=== PATIENT | female | born 1980 | race Caucasian/White ===

== ENCOUNTER 2025-03-11 09:56 | Outpatient (AMB) | payer OTHER, SELFPAY ==
--- NOTE | 2025-03-11 09:58 | A.OFFPC_ITS ---
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 ATTENDANT/CPE Intake Note: New patient to establish care and cpe Brazing Machine Setter Required: No Allergies Iodinated Contrast Media (Contrast Dye) Allergy (Mild, Verified 03/11/25 10:33) hives/sneezing Medication List - Last Reviewed 03/11/25 by Radha Lundberg MA sertraline 75 mg PO QAM Tobacco use date assessed: 03/11/25 Dental Screening Dental Screen Date: 03/11/25 Did you have a dental visit in the last 12 months?: Yes Did you have a dental problem in the last 6 months where you did not have access to dental care?: No Was dental information given to patient?: Patient has dentist HPI HPI Comments History of Present Illness Details Marielle 44 y/o F with obesity, JATINDER, MDD, hx of h pv, migraines Surgery: Hx of L shoulder labral repair in 1999, lipoma of back Fhx: Parents alive and well; Sister w/ luis miguel; sister 2 with depression; Cancer hx in grandparents; 2 children dtr age 11 and son age 8 healthy. Social: , lives w/ kids, stay at home Mom Health Maintenance Tdap 2016 Flu 03/11/25 Mammo 01/2025 [place] * Pap Spring 2024 Specialists DESIGN QUALITY ENGINEER BOGG Psych and counselor History of Present Illness The patient is a 44-year-old female presenting to establish care, for a CPE, and for evaluation of left shoulder pain. No records - unable to get record, pcp private and retired. Left shoulder pain: - The patient presents with left shoulde r pain that has been ongoing for a couple of months, with a potential injury occurring at the end of November while tossing her nephew in a pool. - The pain is described as an intense, d ull pain that has progressively worsened since January. - Symptoms are most severe in the mornin g but improve after a shower. - She reports difficulty with certain mo tions such as taking off a shirt, placing her hands on her hips, and crossing her arm. - She has pain with lateral reach, such as when trying to shave her underarm. - She has been taking Advil for the pain , which provides some relief. - She has a surgical history of a left l abrum tear repair in the early , which had not been problematic since the surgery. Mental health history: - The patient has a history of generaliz ed anxiety disorder and depressive disorder. - She is managed by a prescriber and sta rted taking sertraline 75 mg in June. Gynecologic history: - She sees Dr. Herson Daily for her gynecological care. - Her last Pap smear was in June or Jul of the current year. - She has a distant history of HPV manif esting as warts, which were treated, and one recurrence after the of her son. - Her Pap smears have not shown any issu es. Past Medical History - Obesity with a BMI of 30.4 - Generalized anxiety disorder, treated with sertraline 75 mg - Depressive disorder, treated with sert raline 75 mg since June. - History of HPV with warts, treated. - History of migraines, which were more prominent during puberty. - Allergy to contrast dye, which caused a mild rash and sneezing, treated with Benadryl. Past Surgical History - Left [place] labrum [place]. - Revision surgery on the left shoulder due to a complication with a dissolving screw. - Lipoma removal at the surgery center [facility]. Family History - Parents are both healthy. - One sister has a thyroid issue, possib ly Luis Miguel's. - One sister has a mental health conditi on. - Maternal grandfather had prostate canc er. - Maternal grandmother had an unknown ty pe of cancer. Social History - The patient is . - She has two children, a son and a daug hter, who are healthy. Review of Systems - Musculoskeletal: Reports left shoulder pain with decreased range of motion ongoing for months, worsened since January. Reports associated neck pain from overcompensation. Denies pain with straight leg raise. - Neurological: Reports a history of adry mary when she was younger. Denies current headaches. Denies weakness or faintness with blood draws. - Constitutional: Denies any active issu es other than her shoulder. - Allergies: Reports a history of a mild reaction to contrast dye, characterized by rash and sneezing. Physical Exam General: Well developed, well nourished, in no acute distress. Appears stated age. Head: Normocephalic, atraumatic. Eyes: Pupils are equal, round and reactive to light and accommodation. Conjunctivae are clear. Scleras nonicteric bilat. Vision grossly normal. Ears: TMs clear AU, EACS WNL Nose: Patent, without discharge. Neck: No carotid bruit bilat. Supple, no adenopathy or thyromegaly. Breast: Edu on SBE Lungs: Clear to auscultation bilaterally. No rales, rhonchi or wheeze noted. Good air flow in all jsoeph. Heart: Regular rate and rhythm. No murmurs, click, rubs or gallops are noted. Abdomen: Bowel sounds present in all quadrants. The abdomen is soft, nontender, with no masses or organomegaly noted. No hernias are noted. : Deferred. Reviewed recommendations for routine DESIGN QUALITY ENGINEER Pulses: Peripheral pulses are equal and palpable bilaterally. Extremities: No clubbing, cyanosis nor edema is noted. Neurologic: Gait and station normal. Cranial Nerves 2-12 intact. Motor strength grossly symmetrical and intact. No sensory loss. Balance normal. Skin: No rashes, ulcers, or lesions noted. Turgor is good. Skin color is good. Hair and nails are without abnormalities. Psych: Normal eye contact, affect and mood appropriate, and normal interactions. Patient is alert and appropriate to context. Results - Mammogram: Performed in January, ts pending. - Labs pending Medical Decision Making The patient is a 44-year-old female here to establish care and for evaluation of left shoulder pain. Her primary complaint today is left shoulder pain that has been present for several months and has worsened recently, with significant limitations in her range of motion. Given the history of a possible inciting event, the chronicity of symptoms, and the physical exam findings of pain with specific movements and limited range of motion, a rotator cuff injury is suspec mario. Two options for orthopedic evaluation were discussed: a referral to our hospital's orthopedic department, which may take several weeks, or a visit to a local orthopedic urgent care for a quicker evaluation. The patient opted to go to the orthopedic urgent care for a more immediate assessment due to the duration and severity of her symptoms. As this is an establishment of care visit, we also addressed health maintenance. The patient is up-to-date on her Tdap vaccine. She agreed to and will receive an influenza vaccine today. Baseline labs, including screening for thyroid disease and diabetes, were ordered and will be drawn today. Her past medical history of obesity, anxiety, depression, migraines, and HPV was reviewed. Her medication list, consisting only of sertraline, and her allergy to contrast dye were also noted. Plan Health Maintenance - The patient is establishing care. - Plan is to obtain baseline labs today, including screening for thyroid disease and diabetes. - She will receive her annual influenza vaccine today. - A follow-up physical is scheduled in o year, with instructions to follow up sooner if any lab results are abnormal or if other issues arise. - The patient was educated on how to use the [employer] patient portal for communication and to view lab results. 1. Left Shoulder Pain - The patient's symptoms are suspicious for a rotator cuff injury. - The patient was advised to seek evalua tion at an orthopedic urgent care for a quicker assessment, including on-site X-rays and potential for injection or surgical referral if needed. - She was instructed to follow up with wilber parnell via the patient portal after her orthopedic visit. - Should she require a surgical referral and prefer to stay within our network, she can request a referral from me at that time. 2. Allergy To Contrast Dye - The patient's allergy to contrast dye has been documented. - She was advised to remind any provider ordering imaging about this allergy, as there are different types of contrast. Patient Instructions - Please go to the orthopedic urgent car e across the street to have your left shoulder evaluated. They can do X-rays there and decide on the next steps. - You will receive a flu shot in your ri ght arm today before you leave. - After the shot, please stop at the fro nt desk to get a printout and let them know you need to have labs drawn. They will take you from there. - You will receive an email to sign up f or our patient portal, called the [employer] jayshree. Please sign up within 24 hours. This is the best way to contact me and to see your lab results. - Please send me a message through the [employer] after your visit with the technical information specialist to let me know what they found. - Please schedule a physical exam with wilber parnell for one year from now. If anything comes back on your blood work, or if you get sick or have any other problems, send me a message and we will get you in sooner. - If you ever need imaging that requires contrast dye, please remember to tell the doctor about your allergy. Consent The patient provided verbal consent for baseline lab work and an influenza vaccination after a discussion of the rationale for these interventions. Patient was informed and verbally consented to the use of an ambient scribe for clinic note documentation during this visit. An additional 30 minutes was spent addressing the problem(s) noted at todays visit. This includes time spent before the visit reviewing the chart, time spent during the visit, and time spent after the visit on documentation reviewing laboratory results, diagnostic imaging, medications, performing a medically necessary evaluation, counseling on diagnoses, care coordination, ordering appropriate tests, ordering appropriate medications, review of tests performed by other providers, reporting test results with the patient, communication with other healthcare providers. [facility] Medical History (Updated 03/11/25 @ 10:51 by BARRIE Breaux) Anxiety and depression HPV in female Hx of mammogram (~01/2025) Migraines Surgical History (Updated 03/11/25 @ 10:27 by BARRIE Breaux) H/O left shoulder surgery (~1999) Family History (Updated 03/11/25 @ 10:11 by Radha Lundberg MA) Maternal Grandmother Diabetes Cancer Maternal Grandfather Prostate cancer Sister Thyroid disorder Social History (Updated 03/11/25 @ 10:11 by Radha Lundberg MA) Household Members: Spouse and Children Both parents involved: No Caregiver staying overnight: No Housing: House Are you a primary senior care specialist to a significant other at home: Yes Do you presently have visiting nurse or other home services: No 75 years or older and lives alone: No Alcohol intake: current Alcohol intake frequency: a few times a month Patient Tobacco Use Status: Never used Tobacco e-Cigarette/Vaping Use: Never Used Second Hand Smoke Exposure: No service: No Current occupational status: unemployed Current occupational exposures/hazards: No Cognitive needs: No Hearing needs: No Vision needs: Yes (wear contacts and glsses) Questionnaire PHQ-9 Over the last 2 weeks, how often have you been bothered by any of the following problems? 1. Little interest or pleasure in doing things: not at all 2. Feeling down, depressed, or hopeless: several days 3. Trouble falling or staying asleep, or sleeping too much: not at all 4. Feeling tired or having little energy: several days 5. Poor appetite or overeating: several days 6. Feeling bad about yourself - or that you are a failure or have let yourself or your family down: not at all 7. Trouble concentrating on things, such as reading the newspaper or watching television: not at all 8. Moving or speaking so slowly that other people could have noticed. Or the opposite - being so fidgety or restless that you have been moving around a lot more than usual: not at all 9. Thoughts that you would be better off or of hurting yourself in some way: not at all Total score: 3 Depression Screening Interpretation: Negative Depression Screening Done: Yes 15020 - PHQ-9 Billing: Yes Source: Developed by Drs. Eduin Osborn, Radha Ureña, Yariel Mejía and colleagues, with an educational jasmine from [employer]. Thrive Questionnaire Date Thrive assessed: 03/11/25 I am a: Patient What is your living situation today?: I have a steady place to live Within the past 12 months, did the food you bought not last and you didn't have the money to get more?: Never true Within the past 12 months, did you worry whether your food would run out before you got money to buy more?: Never true Do you have trouble paying for medicines?: No Do you have trouble getting transportation to medical appointments?: No Do you have trouble paying your heating and electricity bill?: No Do you have trouble taking care of your child, family member or friend?: No Do you have trouble with day-to-day activities such as bathing, preparing meals, shopping, managing finances, etc.?: No Are you currently unemployed and looking for a job?: No Are you interested in more education?: No Please select the resources that you would like help with: None Currently or been in a relationship where the following occur: No concerns reported THRIVE Score: 0 AUDIT C Alcohol Use Questionnaire (AUDIT-C) 1. How often do you have a drink containing alcohol?: 2-3 times a week 2. How many drinks containing alcohol do you have on a typical day when you are drinking?: 1 or 2 3. How often do you have six or more drinks on one occasion?: Less than monthly Total Score: 4 Score Reviewed/Action Taken: Yes JATINDER-7 AMB Questionnaire JATINDER-7 Date JATINDER - 7 assessed: 03/11/25 Feeling nervous, anxious, or on edge: 1 = Several days Not being able to stop or control worryin = Several days Worrying too much about different things: 1 = Several days Trouble relaxin = Several days Being so restless that it is hard to sit still: 0 = Not at all Becoming easily annoyed or irritable: 1 = Several days Feeling afraid as if something awful might happen: 0 = Not at all Total JATINDER-7 score (0-4 normal; 5-9 mild; 10-14 moderate; 15-21 severe): 5 Source: Developed by Drs. Eduin Osborn, Radha Ureña, Yariel Mejía and colleagues, with an educational jasmine from [employer]. JATINDER-7 Assessment Billing JATINDER-7 Assessment Tool: JATINDER-7 Assessment 17657 Physical exam (Primary Care) Vital Signs: Last Vital Signs Temp 97.6 F 03/11/25 10:06 Pulse 90 03/11/25 10:06 Resp 12 03/11/25 10:06 BP 110/68 03/11/25 10:06 Pulse Ox 98 03/11/25 10:06 Oxygen Delivery Method Room Air 03/11/25 10:06 BMI result Body Mass Index 30.4 BMI Assessment/Plan discussion: High BMI High, discussed plan: lifestyle Tobacco/Smoking Status: Tobacco use Status Tobacco use date assessed 03/11/25 03/11/25 10:02 Patient Tobacco Use Status Never used Tobacco 03/11/25 10:11 e-Cigarette/Vaping Use Never Used 03/11/25 10:11 PHQ-9: PHQ-9 Score PHQ-9: Total score 3 03/11/25 10:25 Depression Screening Interpretation: Negative Thrive Assessment: Date of Thrive Assessment Date Thrive assessed 03/11/25 03/11/25 10:02 Currently or been in a relationship where the following occur: No concerns reported Extrem Left upper extremity: normal to inspection, normal capillary refill and shoulder/upper arm Details: inspection abnormal, tenderness Location: of the A-C joint, axillary nerve sensory function normal and abnormal ROM Details: pain with active ROM Details: in ADduction, in internal rotation and external rotation- Office Procedures Flu Questionnaire Does the patient have a severe egg allergy?: No Does the patient have severe life threatening allergies?: No Has the patient ever had Guillain-[place] Syndrome?: No Has the patient ever had any past reaction to a flu shot?: No Immunizations Fluarix 1345-7823 (PF) 45 mcg (15 mcg x 3)/0.5 mL IM syringe Performing Provider: BARRIE Breaux Performing Location: [facility] Administered by: Radha Lundberg MA on 03/11/25 10:48 Dose Route Admin Location Dispensed Lot Number Expiration Date [facility] Chemical Plant Operator Supervisor 0.5 mL IM Right Deltoid 0.5 mL [id number] 10/01/25 [id number] [employer] VIS Given Date VIS Provided VIS Publication Date 03/11/25 Single Vaccine 24 Eligibility Eligibility Date Funding Source Not [facility] Eligible 03/11/25 Private Coding Level of Care Code New Pt Level 3 (86799) New Pt Prev Care 40-64y(60744) Diagnoses Encounter to establish care with new provider Z76.89 JATINDER (generalized anxiety disorder) F41.1 MDD (major depressive disorder), recurrent episode, moderate F33.1 Obesity (BMI 30-39.9) E66.9 Acute pain of left shoulder M25.512 Chronicity: acute S/P excision of lipoma Z98.890; Z86.018 History of Papanicolaou smear of cervix Z92.89 Laboratory exam ordered as part of routine general medical examination Z00.00 Family history of Luis Miguel thyroiditis Z83.49 Influenza vaccination administered at current visit Z23 Left anterior shoulder pain M25.512 Adult general medical exam Z00.00 Additional Codes JATINDER-7 Assessment Billing - JATINDER-7 Assessment Tool: JATINDER-7 Assessment 12345 ([id number]) PHQ-9 - 35434 - PHQ-9 Billing: Yes ([id number]) Assessment & Plan Assessment & Plan (1) Encounter to establish care with new provider: Code(s): Z76.89 - Persons encountering health services in other specified circumstances (2) JATINDER (generalized anxiety disorder): Code(s): F41.1 - Generalized anxiety disorder Category: Medical (3) MDD (major depressive disorder), recurrent episode, moderate: Code(s): F33.1 - Major depressive disorder, recurrent, moderate Category: Medical (4) Obesity (BMI 30-39.9): Code(s): E66.9 - Obesity, unspecified Category: Medical (5) Left shoulder pain: Code(s): M25.512 - Pain in left shoulder Category: Medical Qualifiers: Chronicity: acute Qualified Code(s): M25.512 - Pain in left shoulder (6) S/P excision of lipoma: Onset Date: ~2017 Comment: [facility] Code(s): Z98.890 - Other specified postprocedural states; Z86.018 - Personal history of other benign neoplasm Category: Surgical (7) History of Papanicolaou smear of cervix: Onset Date: ~[address]: [facility] Code(s): Z92.89 - Personal history of other medical treatment Category: Medical (8) Laboratory exam ordered as part of routine general medical examination: Code(s): Z00.00 - Encounter for general adult medical examination without abnormal findings Category: Medical (9) Family history of Luis Miguel thyroiditis: Comment: sister Code(s): Z83.49 - Family history of other endocrine, nutritional and metabolic diseases Category: Medical (10) Influenza vaccination administered at current visit: Onset Date: ~03/11/25 Code(s): Z23 - Encounter for immunization Category: Medical (11) Left anterior shoulder pain: Onset Date: ~03/11/25 Code(s): M25.512 - Pain in left shoulder Category: Medical (12) Adult general medical exam: Onset Date: ~03/11/25 Code(s): Z00.00 - Encounter for general adult medical examination without abnormal findings Category: Medical Plan . Orders: Orders Comprehensive Met. Panel Today Z00.00 - Encounter for general adult medical examination without abnormal findings, Z83.49 - Family history of other endocrine, nutritional and metabolic diseases Microalbumin, Random (w Creat) Today Z00.00 - Encounter for general adult medical examination without abnormal findings, Z83.49 - Family history of other endocrine, nutritional and metabolic diseases Vitamin B12 and Folate Today Z00.00 - Encounter for general adult medical examination without abnormal findings, Z83.49 - Family history of other endocrine, nutritional and metabolic diseases Complete Blood Count no Diff Today Z00.00 - Encounter for general adult medical examination without abnormal findings, Z83.49 - Family history of other endocrine, nutritional and metabolic diseases Hemoglobin A1c Today Z00.00 - Encounter for general adult medical examination without abnormal findings, Z83.49 - Family history of other endocrine, nutritional and metabolic diseases Lipid Panel Today Z00.00 - Encounter for general adult medical examination without abnormal findings, Z83.49 - Family history of other endocrine, nutri tional and metabolic diseases TSH reflex Free T4 Today Z00.00 - Encounter for general adult medical examination without abnormal findings, Z83.49 - Family history of other e ndocrine, nutritional and metabolic diseases Vitamin D 25-OH Total Today Z00.00 - Encounter for general adult medical examination without abnormal findings, Z83.49 - Family history of other endocrine, nutritional and metabolic diseases Influenza 4525-2175 Immunization Today Z23 - Encounter for immunization Patient Instructions: Patient Instructions - Please go to the orthopedic urgent care across the street to have your left shoulder evaluated. They can do X-rays there and decide on the next steps. - You will receive a flu shot in your right arm today before you leave. - After the shot, please stop at the senior front end engineer to get a printout and let them know you need to have labs drawn. They will take you from there. - You will receive an email to sign up for our patient portal, called the [employer]ree. Please sign up within 24 hours. This is the best way to contact me and to see your lab results. - Please send me a message through the portal after your visit with the technical information specialist to let me know what they found. - Please schedule a physical exam with me for one year from now. If anything comes back on your blood work, or if you get sick or have any other problems, send me a message and we will get you in sooner. - If you ever need imaging that requires contrast dye, please remember to tell the doctor about your allergy. Walk-In Care (Urgent Care): We Make it Easy Walk-in for urgent medical issues such as: ? Seasonal Allergies ? Insect Bites ? Cough ? Diarrhea ? Acute Asthma Attacks ? Back, Knee or Joint Pain ? Ear Infection ? Fever without a Rash ? Headaches ? Nausea ? Country Walk Eye, Rash or Skin Irritation ? Sore Throat ? Sports Physicals ? Vomiting Most insurances are accepted. Patients do not need to be part of the [facility] to seek care at the walk-in clinic. Locations [address] [place] [address] Open Tuesday through Tuesday 8am-5pm *Hours may vary due to staffing availability. To confirm Walk-In Care hours please call. [address] [place] [address] ? [phone] [facility] Walk-In Care in [place] provides services to ages 18 and over. Open Tuesday-Tuesday: 7 a.m. to 5 p.m. and Tuesday: 9 a.m. to 3 p.m.* *Hours may vary due to staffing availability. To confirm Walk-In Care hours in [place], please call [phone]. [address] [place] [id number] ? [phone] [facility] Walk-In Care in [place] provides services to ages 12 and over. Open Tuesday-Tuesday: 8 a.m. to 5 p.m. Hours may vary due to staffing availability. To confirm Walk-In Care hours in [place], please call [phone]. LABORATORY SERVICES: [facility] ? Primary Location [address] [place] [address] Tuesday through Tuesday 6:00 AM ? 5:00 PM Tuesday 7:00 AM ? 11:00 AM* [phone] The [facility] is centrally located near the front entrance of the Medical Center for easy outpatient access. Convenient parking is provided for outpatients. *Hours may vary due to staffing availability. To confirm Laboratory hours for any location, please call [phone]. Offsite Location For your convenience, we offer offsite laboratory draw stations at the following locations: [address] [place] [address] ? [facility] [address], [address] Tuesday through Tuesday 7:30 AM ? 1:00 PM* [phone] *Hours may vary due to staffing availability. To confirm Laboratory hours for any location, please call [phone]. [place] ? [address] Tuesday through Tuesday 6:00 AM ? 3:30 PM* Tuesday 6:30 AM ? 3 PM* [phone] *Hours may vary due to staffing availability. To confirm Laboratory hours for any location, please call [phone]. [address] [facility] Tuesday through Tuesday 7:30 AM ? 4:00 PM* [phone] *Hours may vary due to staffing availability. To confirm Laboratory hours for any location, please call [phone] [place] [address] Tuesday through 9:00 AM ? 4:00 PM* *Hours may vary due to staffing availability. To confirm Laboratory hours for any location, please call [phone]. Appointments are not necessary. Walk-ins are welcome. Like all the departments throughout the [facility], our Lab undergoes frequent reviews to ensure the quality and accuracy of test results, and our staff takes special pride in its status as a nationally accredited facility. Patient Portal: [facility] ONE PATIENT. ONE RECORD. BETTER CARE. [facility] has a fully integrated, cutting- edge mobile electronic health information system that has revolutionized the way we care for our patients and manage our organization. This system improves communication and coordination enabling us to provide safe, higher-quality care, and an overall positive experience for staff and patients. Our first priority, as always, is to deliver the highest quality care possible. The system is running in the background supporting that priority. This portal is for all [facility] [facility] and [facility] services and practices. If you are experiencing any technical difficulties with enrolling or logging into the Patient Portal please complete the [facility] Patient Portal Technical Support Form. [employer] and [facility] now offers a new secure on-line interactive tool for patients to review their health information ? ?Patient Portal. This interactive web portal will enable patients and their families to take an active role in their care by providing easy, secure access to their health information via the internet. The Patient Portal provides patients with instant access to their health information, including laboratory results, medications, allergies, demographic information, visit history, and more. In addition to managing their own care, parents and health care proxies with authorized consent will appreciate the ability to access the records of those individuals for whom they provide care. Please note: if you wish to gain access (Proxy) to another patient?s portal, you will be required to come to the Medical Records Department in person at [facility]. Both the patient giving proxy access and the proxy will need to provide photo identification and complete the appropriate authorization. The Patient Portal also allows track their appointments online. The [facility] Patient Portal also saves patients time by allowing them to submit updates to their demographic and contact information prior to their visits. Portal email notifications will also alert patients to any new activity on their portal, such as test results and new appointments. In order to initially enroll in the [facility] Patient Portal, you will need to enter some required information including the following: * your [facility] Medical Record number * your personal home email address * name * date of Please note: In order to enroll in the [facility] Patient Portal, we need to have you r email address on file in your electronic medical record. ?The email address needs to be specific for one person (yourself) in order for your Portal enrollment to be successful. ?You can update your email address in person with our Registration staff when you are registering for a hospital visit. ?Otherwise, you will need to come to the Health Information Management (Medical Records) Department at [facility]. ?We are open from Tuesday ? Tuesday from 7:30 a.m. ? 4:30 p.m. ?You will be required to present a photo id. Once you have successfully enrolled in the Patient Portal, you will receive a one-time user id and password for the Portal, sent to your email address. ?This will allow you to log into the Patient Portal within 99 hrs and reset your own logon id and password, and define personal security questions. ?Once your permanent login and password have been set, you can log into the [facility] Patient Portal at any time via the blue button above or from the Portal Logon button on any page of the [employer] website. [employer] and [facility] encourage all of our patients to enroll in Patient Portal as it presents a valuable opportunity for patients and their families to actively participate in their care and stay healthy Welcome to [facility]. ?We look forward to working with you. Health screenings for women You should visit your health care provider from time to time, even if you are healthy. The purpose of these visits is to: Screen for medical issues Assess your risk for future medical problems Encourage a healthy lifestyle Update vaccinations and other preventive care services Help you get to know your provider in case of an illness Information Even if you feel fine, you should still see your provider for regular checkups. These visits can help you avoid problems in the future. For example, the only way to find out if you have high blood pressure is to have it checked regularly. High blood sugar and high cholesterol levels also may not have any symptoms in the early stages. A simple blood test can check for these conditions. There are specific times when you should see your provider or receive specific health screenings. The [place] Preventive Services Task Force publishes a list of recommended screenings. Below are screening guidelines for women ages 18 to 39. BLOOD PRESSURE SCREENING Your blood pressure should be checked at least once every 3 to 5 years if: Your blood pressure is in the normal range (top number less than 120 mm Hg and bottom number less than 80 mm Hg) You don't have risk factors for high blood pressure Ask your provider if you need your blood pressure checked more often if: The top number is 120 to 129 mm Hg or the bottom number is 70 to 79 mm Hg You have diabetes, heart disease, kidney problems, are overweight, or have certain other health conditions You have a first-degree relative with high blood pressure You are Black You had high blood pressure during a If the top number is 130 mm Hg or greater or the bottom number is 80 mm Hg or greater, this is considered stage 1 hypertension. Schedule an appointment with your provider to learn how you can reduce your blood pressure. Watch for blood pressure screenings in your area. Ask your provider if you can stop in to have your blood pressure checked. BREAST CANCER SCREENING Experts do not agree about the benefits of breast self-exams in finding breast cancer or saving lives. Talk to your provider about what is best for you. A screening mammogram is not recommended for most women under age 40. Your provider may discuss and recommend mammograms, MRI scans, or ultrasounds if you have an increased risk for breast cancer, such as: A mother or sister who had breast cancer at a young age (most often starting screening earlier than the age the close relative was diagnosed) You carry a high-risk genetic marker CERVICAL CANCER SCREENING Cervical cancer screening should start at age 21 years unless your provider advises otherwise. After the first test: Women ages 21 through 29 should have a Pap test every 3 years. Exoprts do not agree on whether HPV testing is recommended for this age group. Women ages 30 through 65 should be screened with either a Pap test every 3 years or the HPV test every 5 years or both tests every 5 years (called cotesting ). Women who have been treated for precancer (cervical dysplasia) should continue to have Pap tests for 20 years after treatment or until age 65, whichever is longer. If you have had your uterus and cervix removed (total hysterectomy), and you have not been diagnosed with cervical cancer or precancer (high grade cervical neoplasia), you do not need cervical cancer screening. CHOLESTEROL SCREENING Cholesterol screening should begin at: Age 45 for women with no known risk factors for coronary heart disease Age 20 for women with known risk factors for coronary heart disease Repeat cholesterol screening should take place: Every 5 years for women with normal cholesterol levels More often if changes occur in lifestyle (including weight gain and diet) More often if you have diabetes, heart disease, kidney problems, or certain other conditions DIABETES SCREENING You should be screened for diabetes starting at age 35 and then repeated every 3 years if you have no risk factors for diabetes. Screening may need to start earlier and be repeated more often if you have other risk factors for diabetes, such as: You have a first degree relative with diabetes. You are overweight or have obesity. You have high blood pressure, prediabetes, or a history of heart disease. Screening for diabetes should be done if you are planning to become and you are overweight and have other risk factors such as high blood pressure. DENTAL EXAM Go to the dentist once or twice every year for an exam and cleaning. Your dentist will evaluate if you need more frequent visits. EYE EXAM Have an eye exam every 5 to 10 years before age 40. If you have vision problems, have an eye exam every 2 years or more often if recommended by your provider. You should have an eye exam that includes an examination of your retina (back of your eye) at least every year if you have diabetes. IMMUNIZATIONS Commonly needed vaccines include: Flu shot: get one every year. COVID-19 vaccine: ask your provider what is best for you. Tetanus-diphtheria and acellular pertussis (Tdap) vaccine: have one at or after age 19 as one of your tetanus-diphtheria vaccines if you did not receive it as an adolescent. Tetanus-diphtheria: have a booster (or Tdap) every 10 years. Varicella vaccine: receive 2 doses if you never had chickenpox or the varicella vaccine. Hepatitis B vaccine: receive 2, 3, or 4 doses, depending on your exact circumstances. Measles, mumps, and rubella (MMR) vaccine: receive 1 to 2 doses if you are not already immune to MMR. Your provider can tell you if you are immune. Ask your provider about the human papillomavirus (HPV) vaccine if: You have not received the HPV vaccine in the past You have not completed the full vaccine series (you should catch up on this shot) Ask your provider if you should receive other immunizations if you have certain health problems that increase your risk for some diseases such as pneumonia. INFECTIOUS DISEASE SCREENING Women who are sexually active should be screened for chlamydia and gonorrhea up until age 25. Women 25 years and older should be screened for chlamydia and gonorrhea if at high risk. Screening for hepatitis C: All adults ages 18 to 79 should get a one-time test for hepatitis C. people should be screened at every . Screening for human immunodeficiency virus (HIV): All people ages 15 to 65 should get a one-time test for HIV. Depending on your lifestyle and medical history, you may also need to be screened for infections such as syphilis and HIV, as well as other infections. PHYSICAL EXAM All adults should visit their provider from time to time, even if they are healthy. The purpose of these visits is to: Screen for disease Assess your risk of future medical problems Encourage a healthy lifestyle Update your vaccinations and other preventive care services Maintain a relationship with a provider in case of an illness Your height, weight, and BMI should be checked at every exam. During your exam, your provider may ask you about: Depression and anxiety Diet and exercise Alcohol and tobacco use Safety issues, such as using seat belts, smoke detectors, and intimate partner violence Your medicines and risk for interactions SKIN SELF-EXAM Your provider may check your skin for signs of skin cancer, especially if you're at high risk, such as if you: Have had skin cancer before Have close relatives with skin cancer Have a weakened immune system OTHER SCREENING Talk with your provider about colon cancer screening if you have a strong family history of colon cancer or polyps, or if you have had inflammatory bowel disease or polyps yourself. Routine bone density screening of women under 40 is not recommended.
[2025-03-11 10:06] VITALS: BP 110/68; PULSE 90; RESP 12; TEMP 36.4; O2SAT 98; BMI 30.4
== END 2025-03-11 10:50 | disposition home or self-care (01) ==
LOC: HO.HMCFM 09:57
PROVIDERS: PCP Nurse Practitioner Family; Visit Provider Nurse Practitioner Family
DX: Z00.00 Encounter for general adult medical examination without abnormal findings (principal); M25.512 Pain in left shoulder; F33.1 Major depressive disorder, recurrent, moderate; E66.9 Obesity, unspecified; Z68.30 Body mass index [BMI] 30.0-30.9, adult; F41.1 Generalized anxiety disorder; Z76.89 Persons encountering health services in other specified circumstances; Z98.890 Other specified postprocedural states; Z86.018 Personal history of other benign neoplasm; Z92.89 Personal history of other medical treatment; Z83.49 Family history of other endocrine, nutritional and metabolic diseases; Z23 Encounter for immunization

== ENCOUNTER 2025-03-11 09:56 | Outpatient (REF) | payer OTHER, SELFPAY ==
[2025-03-11 15:06] LABS: Hematocrit 36.7 % (37.0-47.0); Hemoglobin 12.1 g/dl (12.0-16.0); Mean Corpuscular HGB Conc 33.0 g/dl (31.0-35.0); Mean Corpuscular Hemoglobin 30.7 pg (27.0-33.0); Mean Corpuscular Volume 93.1 fL (80.0-98.0); NRBC Abs Auto 0.000 X10*3/uL (0.0-0.012); NRBC Pct Auto 0.0 /100WBC (0.0-0.2); Platelet Count 307 X10*3/uL (160-400); Red Blood Count 3.94 X10*6/uL (4.20-5.50); White Blood Count 7.5 X10*3/uL (4.8-10.8)
[2025-03-11 15:22] LABS: Microalbum/Creatinine Ratio Ur 5.8 ug/mg cr (<30)
[2025-03-11 17:26] LABS: Alanine Aminotransferase 19 U/L (0-31); Albumin Level 4.8 g/dL (3.5-5.0); Alkaline Phosphatase 74 U/L (39-117); Anion Gap 10 (12-20); Aspartate Amino Transferase 23 U/L (5-31); Blood Urea Nitrogen 14 mg/dL (9-16); Calcium 9.0 mg/dL (8.4-10.2); Carbon Dioxide 27 mmol/L (22-29); Chloride 107 mmol/L (96-108); Cholesterol 237 mg/dL (<200); Estimated Glomerular Filt Rate > 60; HDL Cholesterol 73 mg/dL (>40); Potassium 4.3 mmol/L (3.3-5.1); Sodium 140 mmol/L (135-145); Total Protein 7.6 g/dL (6.5-8.0); Triglycerides 83 mg/dL (<150)
[2025-03-11 18:10] LABS: Folate 7.0 ng/mL (> or = 4.0); Vitamin B12 288 pg/mL (200-900)
== END 2025-03-11 09:57 | disposition home or self-care (01) ==
LOC: HO.WFDLDS 09:56
PROVIDERS: PCP Nurse Practitioner Family; Visit Provider Nurse Practitioner Family
DX: Z00.00 Encounter for general adult medical examination without abnormal findings (principal); Z23 Encounter for immunization; Z13.31 Encounter for screening for depression; Z13.39 Encounter for screening examination for other mental health and behavioral disorders; E66.9 Obesity, unspecified; F41.1 Generalized anxiety disorder; M25.512 Pain in left shoulder; Z13.1 Encounter for screening for diabetes mellitus; Z83.49 Family history of other endocrine, nutritional and metabolic diseases
CPT/HCPCS: 36415; 80053; 80061; 82043; 82306; 82570; 82607; 82746; 83036; 84443; 85027; 90471; 90656; 96127